=== PATIENT | male | born 1980 | race Caucasian/White ===

== ENCOUNTER 2022-11-03 10:07 | Day surgery (SDC) | payer BC, SELFPAY ==
--- NOTE | 2022-11-02 14:47 | P.CONAN_ITS ---
Documented by User: Gricel Marcus NP 11/02/22 14:47 HPI - Anesthesia Eval Consult details Narrative: 42yo M for Colonoscopy [facility] Past Medical History Medical History Alopecia areata Ankylosing spondylitis HLA B27 (HLA B27 positive) HTN (hypertension) Testicular seminoma Ulcerative colitis Uveitis Surgical History Surgical History (Updated 11/03/22 @ 10:33 by Jelena Guy RN) History of orchiectomy Hx of colonoscopy Social History Social History Patient Tobacco Use Status: Current someday Tobacco user Tobacco use type: Cigar Smoked in Last 30 Days: No Use of substances other than those prescribed or required for medical reasons: No Are you DNR?: No Advance Directives: No Advance Directives Information Provided: Yes Meds Allergies Allergy/AdvReac Type Severity Reaction Status Date / Time amoxicillin Allergy Unknown Verified 11/02/22 13:09 aspirin Allergy Stomach Verified 11/03/22 10:30 Upset oseltamivir [From Tamiflu] Allergy Unknown Verified 11/02/22 13:09 adalimumab [From Humira] AdvReac Rash Verified 11/03/22 10:30 Home Medications Medication Instructions Recorded Confirmed Last Taken Type golimumab 50 mg/0.5 mL mg subcut 11/02/22 Unknown History subcutaneous pen injector (Simponi) lisinopril 10 mg tablet 1 tab PO DAILY 11/02/22 11/02/22 Unknown History Exam Exam Date and Time: November 02, 2022 1447 Assessment and Plan Assessment Anesthesia Assessment: Chart Reviewed Documented by User: Toño Barrios MD 11/03/22 11:20 [facility] Past Medical History Medical History Alopecia areata Ankylosing spondylitis HLA B27 (HLA B27 positive) HTN (hypertension) Testicular seminoma Ulcerative colitis Uveitis Family History Family history of problems with anesthesia: No Surgical History Surgical History (Updated 11/03/22 @ 10:33 by Jelena Guy RN) History of orchiectomy Hx of colonoscopy History of Problems with Anesthesia: No Social History Social History Patient Tobacco Use Status: Current someday Tobacco user Tobacco use type: Cigar Smoked in Last 30 Days: No Use of substances other than those prescribed or required for medical reasons: No Are you DNR?: No Advance Directives: No Advance Directives Information Provided: Yes Meds Allergies Allergy/AdvReac Type Severity Reaction Status Date / Time amoxicillin Allergy Unknown Verified 11/02/22 13:09 aspirin Allergy Stomach Verified 11/03/22 10:30 Upset oseltamivir [From Tamiflu] Allergy Unknown Verified 11/02/22 13:09 adalimumab [From Humira] AdvReac Rash Verified 11/03/22 10:30 Home Medications Medication Instructions Recorded Confirmed Last Taken Type golimumab 50 mg/0.5 mL mg subcut 11/02/22 Unknown History subcutaneous pen injector (Simponi) lisinopril 10 mg tablet 1 tab PO DAILY 11/02/22 11/02/22 Unknown History Exam Airway Mallampati Class: II TM Dist: >3cm Neck ROM: Full Heart: rrr Lungs: cta Assessment and Plan Final Anesthetic Review Family History of Problems with Anesthesia: No History of Problems with Anesthesia: No NPO: Yes ASA Class: II Final Preanesthetic Review: No Changes in Pt Med Stat, Meds/Allgs Chart Reviewed, Consent Obtained/Reviewed and Anes Risks/Benef Reviewed Patient Risk: Low Procedure Risk: Low Anesthetic Plan Disposition: Standard PACU
[2022-11-03 10:34] VITALS: BMI 34.5
[2022-11-03 10:44] VITALS: BP 141/86; PULSE 73; TEMP 36.6; O2SAT 96
[2022-11-03] MEDS: Lactated Ringers 1,000 ML 100 ML IVCONT (10:56)
--- NOTE | 2022-11-03 11:18 | MHC.SHP ---
Pre-Procedural Eval Section A Date of Service: 11/03/22 The patient is an INPATIENT: No Changes since office visit: No Cold of Flu in the past 2 weeks, No New Medical Problems, No Changes in Medication and No Patient answered all questions The History & Physical has been completed within 30 days and I have reviewed it.: Yes Section B Chief Complaint: Noninfective gastroenteritis and colitis, unspecif Allergies: Allergies Allergy/AdvReac Type Severity Reaction Status Date / Time amoxicillin Allergy Unknown Verified 11/02/22 13:09 aspirin Allergy Stomach Verified 11/03/22 10:30 Upset oseltamivir [From Tamiflu] Allergy Unknown Verified 11/02/22 13:09 adalimumab [From Humira] AdvReac Rash Verified 11/03/22 10:30 Plan I have reviewed the history and physical and performed a pertinent physical examination on my patient. No changes have occurred unless specified. Time Spent With Patient Time: Total time managing care of this patient today ____ minutes.
[2022-11-03 12:00] VITALS: BP 120/63; PULSE 86; RESP 17; TEMP 36.8; O2SAT 96
--- NOTE | 2022-11-03 12:06 | P.BOP_ITS ---
Brief Operative Note Date of Service: 11/03/22 Pre-op diagnosis: ulcerative colitis Post-op diagnosis: same Procedure: colonoscopy Surgeon: Hadley Francis Anesthesia: MAC Was an Label Paster used for this Procedure?: No Estimated blood loss (mL): 5 Pathology: other Condition: stable Disposition: PACU
[2022-11-03 12:15] VITALS: BP 120/80; PULSE 66; RESP 18; TEMP 36.7; O2SAT 98
--- NOTE | 2022-11-03 13:03 | OP_ITS ---
SURGEON: Hadley Francis MD INDICATIONS: Left-sided ulcerative colitis. PREOPERATIVE DIAGNOSIS: POSTOPERATIVE DIAGNOSIS: PROCEDURE PERFORMED: Colonoscopy to the terminal ileum with biopsy. ESTIMATED BLOOD LOSS: COMPLICATIONS: ANESTHESIA: Monitored anesthesia care ASSISTANTS: SPECIMENS: DESCRIPTION OF PROCEDURE: A history and physical was performed. The risks and benefits of the procedure were explained to the patient. Informed consent was obtained. DESCRIPTION OF PROCEDURE: The procedure was performed on 11/03/2022. The patient was placed in the left lateral decubitus position. A digital rectal exam was performed and was found to be normal. The Olympus pediatric video colonoscope was introduced into the rectum and advanced to the cecum without difficulty. The cecum was identified by transillumination, palpation, and identification of ileocecal valve. Examination was performed. The scope was removed. He tolerated the procedure well and was returned to the recovery in stable condition. FINDINGS: The terminal ileum was examined and appeared normal. This was biopsied. The visualized colonic mucosa was within normal limits except in the sigmoid where there was some mild erythema and loss of vascular pattern as well as some punctate 1mm ulcerations. This appeared consistent with mild colitis. Biopsies were obtained for histopathology throughout the colon. Retroflex examination did show some small internal hemorrhoids. IMPRESSION: Ulcerative colitis. RECOMMENDATION: Follow up the biopsy results. MD MAGEN Sheth/YESSY / [id number] MTDD
== END 2022-11-03 12:30 | disposition home or self-care (01) ==
PROVIDERS: PCP Internal Medicine; Visit Provider Internal Medicine Gastroenterology
PROC: 0DJD8ZZ Inspection of Lower Intestinal Tract, Via Natural or Artificial Opening Endoscopic (ICD-10-PCS; CPT 45378; principal; 2022-11-03 11:30)
DX: K51.90 Ulcerative colitis, unspecified, without complications (principal); R15.2 Fecal urgency; K64.8 Other hemorrhoids; C62.92 Malignant neoplasm of left testis, unspecified whether descended or undescended; I10 Essential (primary) hypertension; M45.9 Ankylosing spondylitis of unspecified sites in spine; L63.9 Alopecia areata, unspecified; H20.9 Unspecified iridocyclitis; Z79.899 Other long term (current) drug therapy; Z90.79 Acquired absence of other genital organ(s); Z72.0 Tobacco use; Z88.0 Allergy status to penicillin
CPT/HCPCS: 45380; 88305